=== PATIENT | male | born 1955 | race Caucasian/White ===

== ENCOUNTER → 2017-01-30 | Outpatient (CLI) | payer OTHER ==
[2017-01-30 10:41] LABS: BILIRUBIN,URINE NEGATIVE (NEG); COLOR,URINE YELLOW; GLUCOSE, URINE (UA) NEGATIVE (NEG); NITRATE,URINE NEGATIVE (NEG); OCCULT BLOOD,URINE NEGATIVE (NEG); PROTEIN,URINE NEGATIVE (NEG); UROBILINOGEN,URINE 0.2 mg/dL (0.2)
[2017-01-30 10:44] LABS: CLARITY,URINE CLEAR (CLEAR)
[2017-01-30 10:57] LABS: BACTERIA,URINE FEW; URINE SAMPLE TYPE VOID; WBC,URINE 0-2
== END ==
LOC: MOB LAB 10:04
PROVIDERS: ATTEND Family Medicine
DX: R35.0 Frequency of micturition (principal)
CPT/HCPCS: 81001